=== PATIENT | female | born 1970 | race Caucasian/White ===

== ENCOUNTER 2018-11-20 20:51 | Emergency (ER) | payer MEDICAID ==
[~2018-11-20] VITALS: Ht 154.9 cm; Wt 102.0 kg
[~2018-11-20 20:51] MED LIST: ACET1TAB12 PO; DULO20CA17 PO; DULO30CA51 PO; QUET400T PO; TRAZ-251 PO
[2018-11-20 21:13] VITALS: BP 146/84
[2018-11-20] MEDS ORDERED: HYDR28.316 RC (21:54)
[2018-11-20] MEDS ORDERED: ketorolac trometh inj. 60 MG/2 ML VIAL IM ONE (21:55)
== END 2018-11-20 22:04 | disposition home or self-care (01) ==
LOC: ER 20:52
DX: K64.4 Residual hemorrhoidal skin tags (principal); G43.909 Migraine, unspecified, not intractable, without status migrainosus; Z90.49 Acquired absence of other specified parts of digestive tract; Z98.84 Bariatric surgery status; Z98.890 Other specified postprocedural states; Z60.2 Problems related to living alone; Z88.0 Allergy status to penicillin; Z88.2 Allergy status to sulfonamides; Z88.8 Allergy status to other drugs, medicaments and biological substances; Z79.899 Other long term (current) drug therapy
CPT/HCPCS: 96372; 99283; J1885

== ENCOUNTER 2019-04-09 14:53 | Emergency (ER) | payer BC, MEDICAID ==
[~2019-04-09] VITALS: Ht 154.9 cm; Wt 97.7 kg
[~2019-04-09 14:53] MED LIST changes: -DULO20CA17 PO; +DULO20CA18 PO; -DULO30CA51 PO; +DULO30CA52 PO; +HYDR28.316 RC
[2019-04-09] MEDS ORDERED: diphenhydrAMINE 25mg capsule PO ONE (15:30)
[2019-04-09 15:34] LABS: BASOPHILS # (AUTO) 0.1 X10'3 (0-0.2); BASOPHILS % (AUTO) 1.1 % (0-1); EOSINOPHILS # (AUTO) 0.1 X10'3 (0-0.9); HEMATOCRIT 37.1 % (35.0-45.0); HEMOGLOBIN 12.5 g/dl (12.0-16.0); LYMPHOCYTES # (AUTO) 2.4 X10'3 (1.1-4.8); LYMPHOCYTES % (AUTO) 28.9 % (21-51); MEAN CORPUSCULAR HGB CONC 33.7 g/dL (33.0-36.5); MEAN PLATELET VOLUME 8.4 FL (7.4-10.4); MONOCYTES # (AUTO) 0.6 X10'3 (0-0.9); MONOCYTES % (AUTO) 7.4 % (2-12); NEUTROPHILS # (AUTO) 5.1 X10'3 (1.8-7.7); NEUTROPHILS % (AUTO) 61.6 % (42-75); PLATELET COUNT 279 X10'3 (140-440); RED BLOOD COUNT 4.63 X10'6 (4.20-5.60); RED CELL DISTRIBUTION WIDTH 15.4 % (11.5-14.5); WHITE BLOOD COUNT 8.3 X10'3 (4.5-11.0)
[2019-04-09 15:52] LABS: PARTIAL THROMBOPLASTIN TIME 29 SECONDS (22-32)
[2019-04-09 15:54] LABS: ALANINE AMINOTRANSFERASE 14 U/L (12-78); ALBUMIN 3.6 G/DL (3.4-5.0); ALBUMIN/GLOBULIN RATIO 0.9 (1.1-1.5); ALKALINE PHOSPHATASE 111 IU/L (46-116); ANION GAP 10 (8-16); ASPARTATE AMINO TRANSFERASE 16 U/L (10-37); BILIRUBIN,TOTAL 0.4 MG/DL (0.1-1.0); BLOOD UREA NITROGEN 18 MG/DL (7-18); BUN/CREATININE RATIO 23.7 (6.6-38.0); CHLORIDE 106 MMOL/L (99-107); CREATININE 0.76 MG/DL (0.40-0.90); GLUCOSE 96 MG/DL (70-104); POTASSIUM 3.8 MMOL/L (3.5-5.1); SODIUM 141 MMOL/L (135-145); TOTAL CARBON DIOXIDE 25.4 MMOL/L (24-32); TOTAL PROTEIN 7.4 G/DL (6.4-8.2); eGFR 81 ML/MIN
[2019-04-09] MEDS ORDERED: LORazepam 1 MG tablet PO ONE (17:00)
[2019-04-09 17:29] VITALS: BP 132/76
== END 2019-04-09 17:31 | disposition home or self-care (01) ==
LOC: ER 14:54
DX: R07.89 Other chest pain (principal); F41.9 Anxiety disorder, unspecified; G43.909 Migraine, unspecified, not intractable, without status migrainosus; F32.9 Major depressive disorder, single episode, unspecified; Z90.49 Acquired absence of other specified parts of digestive tract; Z98.890 Other specified postprocedural states; Z98.84 Bariatric surgery status; Z88.0 Allergy status to penicillin; Z88.2 Allergy status to sulfonamides; Z88.8 Allergy status to other drugs, medicaments and biological substances; Z79.899 Other long term (current) drug therapy
CPT/HCPCS: 36415; 71045; 80053; 84484; 85025; 85610; 85730; 93005; 99284; Q0163

== ENCOUNTER 2020-04-07 14:49 | Emergency (ER) | payer MEDICAID ==
[~2020-04-07] VITALS: Ht 154.9 cm; Wt 118.2 kg
[2020-04-07] MEDS ORDERED: normal saline 1000ML IV soln IVB ONE (16:55)
[2020-04-07] MEDS ORDERED: ondansetron/PF 4mg/2ml inj IV ONE (16:55)
[2020-04-07] MEDS ORDERED: LORazepam 2 mg/ml vial IV ONE (17:15)
[2020-04-07] MEDS ORDERED: chlordiazePOXIDE 25mg capsule PO ONE (17:30)
[2020-04-07 18:09] LABS: BASOPHILS % (AUTO) 0.3 % (0-1); EOSINOPHILS % (AUTO) 0 % (0-6); HEMATOCRIT 41.3 % (35.0-45.0); HEMOGLOBIN 13.5 g/dl (12.0-16.0); LYMPHOCYTES # (AUTO) 1.2 X10'3 (1.1-4.8); MEAN CORPUSCULAR HEMOGLOBIN 26.7 PG (27.0-31.0); MEAN CORPUSCULAR HGB CONC 32.7 g/dL (33.0-36.5); MEAN CORPUSCULAR VOLUME 81.6 FL (78-98); MEAN PLATELET VOLUME 7.3 FL (7.4-10.4); MONOCYTES # (AUTO) 0.7 X10'3 (0-0.9); MONOCYTES % (AUTO) 5.8 % (2-12); NEUTROPHILS # (AUTO) 9.9 X10'3 (1.8-7.7); NEUTROPHILS % (AUTO) 83.9 % (42-75); PLATELET COUNT 356 X10'3 (140-440); RED BLOOD COUNT 5.06 X10'6 (4.20-5.60); RED CELL DISTRIBUTION WIDTH 18.3 % (11.5-14.5); WHITE BLOOD COUNT 11.8 X10'3 (4.5-11.0)
[2020-04-07] MEDS ORDERED: ONDA4TAB6 PO (18:10)
[2020-04-07] MEDS ORDERED: CHLO25CA10 PO ×2 (18:10→18:54)
[2020-04-07 18:19] LABS: ALANINE AMINOTRANSFERASE 21 U/L (12-78); ALBUMIN 3.7 G/DL (3.4-5.0); ALBUMIN/GLOBULIN RATIO 0.8 (1.1-1.5); ALKALINE PHOSPHATASE 126 IU/L (46-116); ANION GAP 11 (8-16); ASPARTATE AMINO TRANSFERASE 19 U/L (10-37); BILIRUBIN,TOTAL 0.7 MG/DL (0.1-1.0); BLOOD UREA NITROGEN 16 MG/DL (7-18); BUN/CREATININE RATIO 18.2 (6.6-38.0); CALCIUM 8.7 MG/DL (8.5-10.1); CHLORIDE 103 MMOL/L (99-107); CREATININE 0.88 MG/DL (0.40-0.90); GLUCOSE 127 MG/DL (70-104); LIPASE 64 U/L (73-393); POTASSIUM 4.5 MMOL/L (3.5-5.1); SODIUM 139 MMOL/L (135-145); TOTAL CARBON DIOXIDE 24.6 MMOL/L (24-32); TOTAL PROTEIN 8.3 G/DL (6.4-8.2); eGFR 68 ML/MIN
--- NOTE | 2020-04-07 18:47 | NUR ---
Patient resting states she is nautious and notable slight tremors. Assisted patient to bathroom, obtained urine, attached to panama hat blocker and assisted to position of comfort.
[2020-04-07 19:12] VITALS: BP 134/79
[2020-04-07 19:15] LABS: URINE HCG NEGATIVE (NEG)
[2020-04-07 19:19] LABS: CLARITY,URINE CLEAR (Clear); COLOR,URINE AMBER (Yellow); GLUCOSE, URINE NEGATIVE (Neg); KETONES,URINE NEGATIVE (Neg); LEUKOCYTE ESTERASE ,URINE NEGATIVE (Neg); NITRITES, URINE NEGATIVE (Neg); OCCULT BLOOD,URINE NEGATIVE (Neg); PROTEIN,URINE TRACE mg/dl (Neg); UA COLLECTION TYPE CLN CATCH MIDSTREAM; UROBILINOGEN,URINE 0.2 E.U/dL (0.2-1.0)
[2020-04-07 19:43] LABS: BACTERIA,URINE FEW /HPF (Neg); MUCUS STRANDS MANY /LPF (Neg); RBC,URINE NONE SEEN /HPF (0-2); SQUAMOUS EPITHELIAL CELL,UR MODERATE /LPF (FEW); WBC,URINE 0-4 /HPF (0-4)
== END 2020-04-07 19:16 | disposition home or self-care (01) ==
LOC: ER 14:50
DX: F10.239 Alcohol dependence with withdrawal, unspecified (principal); R11.0 Nausea; G43.909 Migraine, unspecified, not intractable, without status migrainosus; F41.9 Anxiety disorder, unspecified; F32.9 Major depressive disorder, single episode, unspecified; Z85.9 Personal history of malignant neoplasm, unspecified; Z90.49 Acquired absence of other specified parts of digestive tract; Z98.890 Other specified postprocedural states; Z72.89 Other problems related to lifestyle; Z60.2 Problems related to living alone; Z88.0 Allergy status to penicillin; Z88.2 Allergy status to sulfonamides; Z88.8 Allergy status to other drugs, medicaments and biological substances; Z79.899 Other long term (current) drug therapy
CPT/HCPCS: 36415; 80053; 81001; 81025; 83690; 85025; 96361; 96374; 96375; 99284; J2060; J2405; J7030

== ENCOUNTER 2020-05-10 17:31 | Emergency (ER) | payer MEDICAID ==
[~2020-05-10] VITALS: Ht 154.9 cm; Wt 113.6 kg
[~2020-05-10 17:31] MED LIST changes: +CHLO25CA10 PO; +ONDA4TAB6 PO
[2020-05-10] MEDS ORDERED: dexamethasone sod phosphate 10mg/ml inj IM STA (18:54)
[2020-05-10] MEDS ORDERED: orphenadrine citrate 60mg/2ml inj. IM ONE (18:55)
[2020-05-10] MEDS ORDERED: METH-360 PO (18:57)
[2020-05-10 19:16] VITALS: BP 125/97
== END 2020-05-10 19:17 | disposition home or self-care (01) ==
LOC: ER 17:32
DX: M54.41 Lumbago with sciatica, right side (principal); G43.909 Migraine, unspecified, not intractable, without status migrainosus; Z98.84 Bariatric surgery status; Z90.49 Acquired absence of other specified parts of digestive tract; Z72.89 Other problems related to lifestyle; Z60.2 Problems related to living alone; Z85.9 Personal history of malignant neoplasm, unspecified; Z88.0 Allergy status to penicillin; Z88.2 Allergy status to sulfonamides; Z88.8 Allergy status to other drugs, medicaments and biological substances; Z79.899 Other long term (current) drug therapy
CPT/HCPCS: 96372; 99284; J1100; J2360

== ENCOUNTER 2021-12-02 12:37 | Emergency (ER) | payer MEDICAID, OTHER ==
[~2021-12-02] VITALS: Ht 165.1 cm; Wt 109.1 kg
[~2021-12-02 12:37] MED LIST changes: +METH-360 PO
[2021-12-02 12:41] VITALS: BP 151/80
[2021-12-02] MEDS ORDERED: dexamethasone sod phosphate 10mg/ml inj IM STA (13:41)
[2021-12-02] MEDS ORDERED: orphenadrine citrate 60mg/2ml inj. IM ONE (13:45)
[2021-12-02] MEDS ORDERED: METH4TAB3 PO (14:48)
[2021-12-02] MEDS ORDERED: ORPH100T2 PO (14:48)
== END 2021-12-02 15:03 | disposition home or self-care (01) ==
LOC: ER 12:38
DX: M25.512 Pain in left shoulder (principal); F41.9 Anxiety disorder, unspecified; G43.909 Migraine, unspecified, not intractable, without status migrainosus; F32.A Depression, unspecified; Z88.0 Allergy status to penicillin; Z88.2 Allergy status to sulfonamides; Z79.899 Other long term (current) drug therapy; X58.XXXA Exposure to other specified factors, initial encounter; Y93.89 Activity, other specified; Y92.89 Other specified places as the place of occurrence of the external cause; Y99.8 Other external cause status
CPT/HCPCS: 96372; 99284; J1100; J2360

== ENCOUNTER 2022-09-10 05:16 | Emergency (ER) | payer OTHER ==
[~2022-09-10] VITALS: Ht 154.9 cm; Wt 104.5 kg
[~2022-09-10 05:16] MED LIST changes: +METH4TAB3 PO; +ORPH100T2 PO
[2022-09-10] MEDS ORDERED: ketorolac trometh inj. 60 MG/2 ML VIAL IM ONE (06:25)
[2022-09-10] MEDS ORDERED: HYDR-3965 PO (06:26)
[2022-09-10 07:58] VITALS: BP 127/78
== END 2022-09-10 08:02 | disposition home or self-care (01) ==
LOC: ER 05:17
DX: R51.9 Headache, unspecified (principal); G89.29 Other chronic pain; M54.2 Cervicalgia; G43.909 Migraine, unspecified, not intractable, without status migrainosus; F31.9 Bipolar disorder, unspecified; Z90.49 Acquired absence of other specified parts of digestive tract; Z88.0 Allergy status to penicillin; Z88.2 Allergy status to sulfonamides; Z79.899 Other long term (current) drug therapy; Z88.1 Allergy status to other antibiotic agents; Z79.1 Long term (current) use of non-steroidal anti-inflammatories (NSAID); Z79.2 Long term (current) use of antibiotics
CPT/HCPCS: 96372; 99283; J1885

== ENCOUNTER 2022-09-20 04:21 | Emergency (ER) | payer OTHER ==
[~2022-09-20] VITALS: Ht 152.4 cm; Wt 105.0 kg
[~2022-09-20 04:21] MED LIST changes: +HYDR-3965 PO; -ORPH100T2 PO; +ORPH100T4 PO
[2022-09-20 04:26] VITALS: BP 108/65
[2022-09-20] MEDS ORDERED: CYCL-1 PO (04:59)
[2022-09-20] MEDS ORDERED: HYDR-3965 PO (04:59)
[2022-09-20] MEDS ORDERED: ketorolac trometh inj. 60 MG/2 ML VIAL IM ONE (05:00)
[2022-09-20] MEDS ORDERED: acetaminophen 325mg tablet PO ONE (05:00)
[2022-09-20] MEDS ORDERED: ondansetron 4mg rapidly disintigrating tab PO ONE (05:00)
[2022-09-20] MEDS ORDERED: morphine 4 MG/ML inj SYRINge IM ONE (05:00)
== END 2022-09-20 05:23 | disposition home or self-care (01) ==
LOC: ER 04:22
DX: M54.2 Cervicalgia (principal); G43.909 Migraine, unspecified, not intractable, without status migrainosus; Z88.0 Allergy status to penicillin; Z88.2 Allergy status to sulfonamides; Z90.49 Acquired absence of other specified parts of digestive tract
CPT/HCPCS: 96372; 99284; J1885; J2270

== ENCOUNTER 2022-11-26 02:00 | Emergency (ER) | payer OTHER, MEDICAID ==
[~2022-11-26] VITALS: Ht 152.4 cm; Wt 110.0 kg
[~2022-11-26 02:00] MED LIST changes: +CYCL-1 PO; -HYDR-3965 PO
[2022-11-26 02:02] VITALS: BP 139/81
[2022-11-26] MEDS ORDERED: HYDR-3965 PO (02:48)
[2022-11-26] MEDS ORDERED: CYCL-1 PO (02:48)
[2022-11-26] MEDS ORDERED: ketorolac trometh inj. 60 MG/2 ML VIAL IM ONE (02:50)
[2022-11-26] MEDS ORDERED: morphine 4 MG/ML inj SYRINge IM ONE (02:50)
[2022-11-26] MEDS ORDERED: orphenadrine citrate 60mg/2ml inj. IM ONE (02:50)
== END 2022-11-26 03:10 | disposition home or self-care (01) ==
LOC: ER 02:01
DX: M54.2 Cervicalgia (principal); G43.909 Migraine, unspecified, not intractable, without status migrainosus; Z88.0 Allergy status to penicillin; Z88.2 Allergy status to sulfonamides; Z88.8 Allergy status to other drugs, medicaments and biological substances; Z90.49 Acquired absence of other specified parts of digestive tract
CPT/HCPCS: 96372; 99284; J1885; J2270; J2360

== ENCOUNTER 2023-07-18 14:53 | Emergency (ER) | payer MEDICAID, OTHER ==
[~2023-07-18] VITALS: Ht 152.4 cm; Wt 95.5 kg
[2023-07-18 14:57] VITALS: BP 122/81; PULSE 105; TEMP 98; O2SAT 100
[2023-07-18 15:21] VITALS: RESP 16
[2023-07-18] MEDS: HYDROcodone/acetaminophen 10/325mg tab PO ONE (15:21)
[2023-07-18] MEDS: dexamethasone sod phosphate 10mg/ml inj IM STA (15:21)
[2023-07-18] MEDS ORDERED: PRED20TA PO (16:21)
[2023-07-18] MEDS ORDERED: HYDR-3972 PO (16:21)
== END 2023-07-18 17:04 | disposition home or self-care (01) ==
LOC: ER 14:54
DX: M54.12 Radiculopathy, cervical region (principal); F41.9 Anxiety disorder, unspecified; F32.A Depression, unspecified; Z90.49 Acquired absence of other specified parts of digestive tract
CPT/HCPCS: 96372; 99283; J1100

== ENCOUNTER 2024-11-03 14:58 | Outpatient (CLI) | payer MEDICAID ==
--- NOTE | 2024-11-03 21:21 | RADIOLOGY REPORT ---
EXAM: MR MRI THORACIC SPINE HISTORY: PAIN IN THORACIC SPINE COMPARISON: None TECHNIQUE: Multiplanar, multisequence MRI was performed. FINDINGS: VERTEBRAE: Normal in alignment and height. No suspicious bone marrow signal. INTERVERTEBRAL DISCS: Mild multilevel degenerative changes. No significant central canal or neural f oramina stenosis. No definite impingement of the bilateral exiting nerves and traversing nerve roots . Incidentally noted is degenerative disc disease, central canal and neural foramina stenosis L1-L2. Suggest further evaluation with a lumbar spine MRI. Multilevel degenerative disc disease of the lower cervical spine is also noted that can be evaluated with MRI. SPINAL CORD: Normal morphology and signal without evidence for cord edema or myelomalacia. It termin ates at T12-L1 level. PARASPINAL SOFT TISSUES: Unremarkable. OTHER: None. IMPRESSION: 1. Multilevel degenerative disc disease of the thoracic spine without significant central canal/neura l foramina stenosis or nerve root impingement. 2. Incidentally noted is degenerative disc disease, central canal and neural foramina stenosis L1-L2. Suggest further evaluation with a lumbar spine MRI. Multilevel degenerative disc disease of the lowe r cervical spine is also noted that can be evaluated with MRI.
== END 2024-11-03 23:59 | disposition home or self-care (01) ==
LOC: MRI02 14:58
PROVIDERS: ATTEND Nurse Practitioner Adult Health
DX: M51.35 Other intervertebral disc degeneration, thoracolumbar region (principal); M54.2 Cervicalgia; M48.02 Spinal stenosis, cervical region; M62.838 Other muscle spasm; M47.812 Spondylosis without myelopathy or radiculopathy, cervical region; M48.061 Spinal stenosis, lumbar region without neurogenic claudication
CPT/HCPCS: 72146